=== PATIENT | male | born 1940 | race Caucasian/White ===

== ENCOUNTER 2021-01-27 06:00 | Outpatient (RCR) | payer MEDICARE, SELFPAY | END 2021-01-28 23:59 | disposition home or self-care (01) | LOC: GPT 06:00 | PROVIDERS: PCP Nurse Practitioner Family; Referring Provider Physician Assistant; Visit Provider Physician Assistant | DX: M19.90 Unspecified osteoarthritis, unspecified site (principal); M25.561 Pain in right knee; M25.562 Pain in left knee; Z79.4 Long term (current) use of insulin; I50.1 Left ventricular failure, unspecified | CPT/HCPCS: 97032; 97110; 97162; 97530 ==

== ENCOUNTER 2021-01-29 06:00 | Outpatient (RCR) | payer MEDICARE, SELFPAY | END 2021-02-28 23:59 | disposition home or self-care (01) | LOC: GPT 06:00 | PROVIDERS: PCP Nurse Practitioner Family; Referring Provider Physician Assistant; Visit Provider Physician Assistant | DX: M17.11 Unilateral primary osteoarthritis, right knee (principal) | CPT/HCPCS: 97032; 97110; 97530 ==

== ENCOUNTER → 2022-09-07 14:45 | Outpatient (BNVA) | payer MEDICARE, SELFPAY | PROVIDERS: PCP Nurse Practitioner Family; Visit Provider Surgery | DX: K57.92 Diverticulitis of intestine, part unspecified, without perforation or abscess without bleeding (principal); K92.1 Melena; Z80.0 Family history of malignant neoplasm of digestive organs; Z86.010 Personal history of colon polyps | CPT/HCPCS: 99203 ==

== ENCOUNTER → 2022-10-26 06:24 | Day surgery (SDC) | payer MEDICARE, SELFPAY ==
[2022-10-24 08:47] VITALS: BMI 36.6
[2022-10-26 06:35] VITALS: BP 169/97; PULSE 67; RESP 20; TEMP 36.4; O2SAT 92
--- NOTE | 2022-10-26 06:53 | ANES.PREANE2 ---
Pre-Anesthetic Assessment Height/Weight: Height 1.83 m Weight 122.47 kg Preop Diagnosis: Divertivulitis, Hematochezia Operation Date: 10/26/22 07:30 Proposed Procedures p 55834 Colon, k57.92 diverticulitis, K92.1 hematochezia, z80.0 family hx of colon cancer z86.010 hx of colon polyps(Not Applicable) - Maycol Chacko DO Familial anesthetic complications: none Last intake: Intake Last Liquid Date 10/25/22 Last Liquid Time 22:00 Last Solid Date 10/24/22 Last Solid Time 22:30 Social No alcohol and No tobacco Exam alert, oriented x 3, clear to auscultation bilaterally and regular rate & rhythm Airway Submandibular: within normal limits Cervical ROM: within normal limits Mallampati: Class II Dentition: false (upper and lower) Pulmonary Sleep Apnea (2L NC at night) CV/HEM Coronary Artery Disease, Congestive Heart Failure, Hypertension, Myocardial Infarction ([address] [facility]) and Peripheral Vascular Disease EF 35% per patient None reported Hepatic None reported GI Gastroesophageal Reflux Disease Diverticulitis Hematochezia Metabolic Diabetes Mellitus, Hyperlipidemia and Morbid Obesity [facility] [place] None reported Neuropsych None reported Anesthetic Plan ASA status: 3 Anesthesia: MAC Medications/Allergies Home Medications Medication Instructions Recorded Confirmed Last Taken Type allopurinol 300 mg tablet 300 mg PO DAILY 12/23/20 10/26/22 10/24/22 History aspirin 81 mg chewable tablet 81 mg PO DAILY 12/23/20 10/26/22 10/23/22 History (Gabino Chewable Low Dose Aspirin) carvedilol 12.5 mg tablet 12.5 mg PO BID 12/23/20 10/26/22 10/24/22 History cholecalciferol (vitamin D3) 125 5,000 unit PO DAILY 12/23/20 10/26/22 10/24/22 History mcg (5,000 unit) capsule finasteride 5 mg tablet 5 mg PO DAILY 12/23/20 10/26/22 10/24/22 History furosemide 40 mg tablet 40 mg PO QAM 12/23/20 10/26/22 10/24/22 History glipizide 5 mg tablet, extended 5 mg PO DAILY 12/23/20 10/26/22 10/24/22 History release 24 hr magnesium 250 mg tablet 500 mg PO DAILY 12/23/20 10/26/22 10/24/22 History metformin 1,000 mg tablet 1,000 mg PO BID 12/23/20 10/26/22 10/24/22 History omeprazole 20 mg capsule,delayed 20 mg PO DAILY 12/23/20 10/26/22 10/24/22 History release sacubitril 49 mg-valsartan 51 mg 1 tab PO DAILY 12/23/20 10/26/22 10/24/22 History tablet (Entresto) spironolactone 25 mg tablet 25 mg PO QAM 12/23/20 10/26/22 10/24/22 History tamsulosin 0.4 mg capsule 0.4 mg PO DAILY 12/23/20 10/26/22 10/24/22 History testosterone cypionate 200 mg/mL 200 mg SUBCUT .every other week 12/23/20 10/26/22 10/14/22 History intramuscular oil venlafaxine 75 mg tablet,extended 75 mg PO DAILY 12/23/20 10/26/22 10/24/22 History release 24 hr Allergies Allergy/AdvReac Type Severity Reaction Status Date / Time No Known Allergies Allergy Verified 10/26/22 06:39 [facility] Anesthesia Medical History CAD (coronary artery disease) Diabetes GERD (gastroesophageal reflux disease) Gout Hyperlipidemia Hyperpotassemia Hypertension Testosterone deficiency Surgical History H/O arthroscopic knee surgery bilateral History of appendectomy History of cataract extraction right History of intravascular stent placement History of nasal surgery History of throat surgery History of tonsillectomy Family History Brother Cancer Grandfather Cancer Other CHF (congestive heart failure) Social History Smoking and tobacco status: former smoker Alcohol intake: never Data Anesthesia Cardiac Studies: No Data to Display
[2022-10-26] MEDS: sodium chloride 0.9% 1,000 ML 30 ML IV (06:59)
--- NOTE | 2022-10-26 07:06 | PM.HP ---
Providers/Chief Complaint Primary Care Provider: Bruce Bhatti Chief Complaint: K57.92, K92.1 History of Present Illness Anshu Saleh is a 82 year old male here for a diagnostic colonoscopy Medications/Allergies Home Medications Medication Instructions Recorded Confirmed Last Taken Type allopurinol 300 mg tablet 300 mg PO DAILY 12/23/20 10/26/22 10/24/22 History aspirin 81 mg chewable tablet 81 mg PO DAILY 12/23/20 10/26/22 10/23/22 History (Gabino Chewable Low Dose Aspirin) carvedilol 12.5 mg tablet 12.5 mg PO BID 12/23/20 10/26/22 10/24/22 History cholecalciferol (vitamin D3) 125 5,000 unit PO DAILY 12/23/20 10/26/22 10/24/22 History mcg (5,000 unit) capsule finasteride 5 mg tablet 5 mg PO DAILY 12/23/20 10/26/22 10/24/22 History furosemide 40 mg tablet 40 mg PO QAM 12/23/20 10/26/22 10/24/22 History glipizide 5 mg tablet, extended 5 mg PO DAILY 12/23/20 10/26/22 10/24/22 History release 24 hr magnesium 250 mg tablet 500 mg PO DAILY 12/23/20 10/26/22 10/24/22 History metformin 1,000 mg tablet 1,000 mg PO BID 12/23/20 10/26/22 10/24/22 History omeprazole 20 mg capsule,delayed 20 mg PO DAILY 12/23/20 10/26/22 10/24/22 History release sacubitril 49 mg-valsartan 51 mg 1 tab PO DAILY 12/23/20 10/26/22 10/24/22 History tablet (Entresto) spironolactone 25 mg tablet 25 mg PO QAM 12/23/20 10/26/22 10/24/22 History tamsulosin 0.4 mg capsule 0.4 mg PO DAILY 12/23/20 10/26/22 10/24/22 History testosterone cypionate 200 mg/mL 200 mg SUBCUT .every other week 12/23/20 10/26/22 10/14/22 History intramuscular oil venlafaxine 75 mg tablet,extended 75 mg PO DAILY 12/23/20 10/26/22 10/24/22 History release 24 hr Allergies Allergy/AdvReac Type Severity Reaction Status Date / Time No Known Allergies Allergy Verified 10/26/22 06:39 PFSH Acute PFSH: Medical History CAD (coronary artery disease) Diabetes GERD (gastroesophageal reflux disease) Gout Hyperlipidemia Hyperpotassemia Hypertension Testosterone deficiency Surgical History H/O arthroscopic knee surgery bilateral History of appendectomy History of cataract extraction right History of intravascular stent placement History of nasal surgery History of throat surgery History of tonsillectomy Family History Brother Cancer Grandfather Cancer Other CHF (congestive heart failure) Social History Smoking and tobacco status: former smoker Alcohol intake: never Vitals/I&O/Wt Last Vital Signs Temp 97.6 F 10/26/22 06:35 Pulse 67 10/26/22 06:35 Resp 20 H 10/26/22 06:35 BP 169/97 10/26/22 06:35 Pulse Ox 92 10/26/22 06:35 O2 Del Method Room Air 10/26/22 06:35 Weight last 48 hrs Weight 270 lb A&P Assessment and plan (1) History of colon polyps: (2) Family history of colon cancer: (3) Diverticulitis: Plan Diagnostic colonoscopy Attestations Medical Necessity Statement*: Home Coding Level of Care Code Acute Code for Chg Fwd Diagnoses History of colon polyps Z86.010 Family history of colon cancer Z80.0 Diverticulitis K57.92
[2022-10-26 07:08] LABS: Glucose Point of Care 119 mg/dL (70-110)
--- NOTE | 2022-10-26 07:30 | ECG_ITS ---
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 Measurements Intervals [place] Rate: 74 P: 145 ME: 236 QRS: -25 QRSD: 114 T: 153 QT: 382 QTc: 426 Interpretive Statements SINUS RHYTHM WITH SINUS ARRHYTHMIA WITH FIRST DEGREE AV BLOCK LOW QRS VOLTAGE IN PRECORDIAL LEADS [QRS DEFLECTION < 1.0 mV IN CHEST LEADS] POSSIBLE ANTERIOR MYOCARDIAL INFARCTION , OF INDETERMINATE AGE [30 ms Q WAVE IN V3/V4, OR R < 0.2 mV IN V4] INFERIOR MYOCARDIAL INFARCTION , PROBABLY OLD [40+ ms Q WAVE AND/OR ST/T ABNORMALITY IN II/aVF] No previous ECG available for comparison Electronically Signed On 10-27-2022 10:06:09 CDT by Angelo Archer M.D. [id number]
[2022-10-26 07:43] LABS: Anion Gap 13.3 (5-19); Blood Urea Nitrogen 10 mg/dL (8-23); Calcium 9.5 mg/dL (8.5-10.5); Carbon Dioxide 31 mmol/L (22-29); Chloride 101 mmol/L (98-107); Glucose 121 mg/dL (65-115); Osmolality Calculated 292 mOsm/kg (285-295); Potassium 4.3 mmol/L (3.5-5.1); Sodium 141 mmol/L (136-145)
--- NOTE | 2022-10-26 07:54 | P.MISC_ITS ---
Miscellaneous Note Note: Patient states having frequent episodes of chest pain, unable to achieve 4 METs w/out symptoms, NTG not alleviating symptoms, supposed to have echo in 2 weeks with hx of EF of 35%. Recommend rescheduling until after echo and patient re- convenes with bistro attendant regarding his frequent refractory chest pains. patient is in agreement.
--- NOTE | 2022-10-26 08:07 | SUR.PREOP ---
Patient's case was cancelled today per Dr Garrido, anesthesia, she is wanting pt to get cardiac clearance before proceeding with scope. Patient prepared to go home per Angie Blount RN.
== END ==
PROVIDERS: Anesthesiology; Absent Provider Internal Medicine; PCP Family Medicine; Visit Provider Surgery
PROC: 0DJD8ZZ Inspection of Lower Intestinal Tract, Via Natural or Artificial Opening Endoscopic (ICD-10-PCS; CPT 45378; principal; 2022-10-26 07:30)
DX: Z01.818 Encounter for other preprocedural examination (principal); K57.92 Diverticulitis of intestine, part unspecified, without perforation or abscess without bleeding; Z80.0 Family history of malignant neoplasm of digestive organs; Z86.010 Personal history of colon polyps; G47.30 Sleep apnea, unspecified; I25.10 Atherosclerotic heart disease of native coronary artery without angina pectoris; I11.0 Hypertensive heart disease with heart failure; I50.9 Heart failure, unspecified; I73.9 Peripheral vascular disease, unspecified; E11.9 Type 2 diabetes mellitus without complications; E78.5 Hyperlipidemia, unspecified; E66.01 Morbid (severe) obesity due to excess calories; Z68.36 Body mass index [BMI] 36.0-36.9, adult; Z79.82 Long term (current) use of aspirin; Z87.891 Personal history of nicotine dependence; I49.8 Other specified cardiac arrhythmias; I44.0 Atrioventricular block, first degree; R07.9 Chest pain, unspecified
CPT/HCPCS: 36416; 80048; 82962; 93005; J7030

== ENCOUNTER → 2024-06-05 10:13 | Outpatient (BNVA) | payer MEDICARE, SELFPAY | PROVIDERS: PCP Nurse Practitioner Family; Visit Provider Nurse Practitioner Family | DX: I10 Essential (primary) hypertension (principal); E11.9 Type 2 diabetes mellitus without complications | CPT/HCPCS: 80053; 80061; 82043; 83036 ==

== ENCOUNTER → 2024-07-23 15:22 | Outpatient (BNVA) | payer MEDICARE, SELFPAY | PROVIDERS: PCP Nurse Practitioner Family; Visit Provider Orthopaedic Surgery | DX: M48.061 Spinal stenosis, lumbar region without neurogenic claudication (principal); M25.569 Pain in unspecified knee; M54.9 Dorsalgia, unspecified | CPT/HCPCS: 72110; 73560; 73565; 99214 ==

== ENCOUNTER 2024-07-30 06:00 | Outpatient (RCR) | payer MEDICARE, SELFPAY | END 2024-08-28 23:59 | disposition home or self-care (01) | LOC: GPT 06:00 | PROVIDERS: Visit Provider Orthopaedic Surgery | DX: M54.9 Dorsalgia, unspecified (principal); G89.29 Other chronic pain | CPT/HCPCS: 97140; 97162; 97530 ==

== ENCOUNTER 2024-08-06 11:32 | Outpatient (CLI) | payer MEDICARE, SELFPAY ==
--- NOTE | 2024-08-06 11:45 | MR_ITS ---
WS: [id number] MRI LUMBAR SPINE NONCONTRAST HISTORY: Back pain COMPARISON: None available. TECHNIQUE: Sagittal and axial multisequence imaging is submitted. Mild ventriculomegaly. Moderate C4-5 disc space narrowing. T3 hemangioma. Mild curvature of the lumbar spine. Posterior vertebral alignment is normal. Disc spaces are moderately narrowed and desiccated throughout the lumbar spine, most significant at C4-5. Reactive marrow edema in the endplates of L3 and L4. Conus terminates normally at L1-2 disc level. L1-L2: Mild bilateral facet arthritis. L2-L3: Osteophytic ridging, annular disc bulging and LEFT foraminal disc protrusion. Moderate facet and ligamentum flavum hypertrophy. Central and subarticular recess encroachment. Disc contacts the traversing L3 nerve roots. Moderate LEFT and mild RIGHT foraminal stenosis. L3-L4: Marked annular disc bulging with osteophytic ridging. Disc osteophyte disease in the foramina, RIGHT greater than LEFT. Severe ligamentum flavum and facet arthropathy. Moderate to severe central with bilateral subarticular recess encroachment. Severe RIGHT and mild LEFT foraminal stenosis. L4-L5: Diffuse annular disc bulging, osteophytic ridging and facet arthritis. Mild disc encroachment upon the subarticular recesses. Disc osteophyte disease in the foramina. There is mild bilateral subarticular recess and foraminal stenosis. L5-S1: Mild annular disc bulging with moderate ligamentum flavum and facet arthritis. Mild RIGHT foraminal stenosis. Infrarenal aortic aneurysm 3.2 cm. Large amount of parapelvic fat. MR/MR lumbar spine wo con* [id number] IMPRESSION: 1. L3-4: Moderate to severe central with bilateral subarticular recess stenosi s. Severe RIGHT and mild LEFT foraminal stenosis due to combination of disc dis ease with protrusions and ligamentum flavum and facet arthritis and osteophytes . 2. L4-5: Mild bilateral subarticular recess and foraminal stenosis. 3. L2-3: LEFT foraminal disc protrusion. Mild central and bilateral subarticul ar recess stenosis. Moderate LEFT and mild RIGHT foraminal stenosis due to disc and osteophyte disease. 4. L5-S1: Mild RIGHT foraminal stenosis. 5. Abdominal aortic aneurysm 3.2 cm.
== END 2024-08-06 11:33 | disposition home or self-care (01) ==
PROVIDERS: Visit Provider Orthopaedic Surgery
DX: M48.061 Spinal stenosis, lumbar region without neurogenic claudication (principal); M51.369 Other intervertebral disc degeneration, lumbar region without mention of lumbar back pain or lower extremity pain; M51.26 Other intervertebral disc displacement, lumbar region; M24.28 Disorder of ligament, vertebrae; M47.896 Other spondylosis, lumbar region; M25.78 Osteophyte, vertebrae; M48.07 Spinal stenosis, lumbosacral region; I71.40 Abdominal aortic aneurysm, without rupture, unspecified; G93.89 Other specified disorders of brain; M50.321 Other cervical disc degeneration at C4-C5 level; D18.09 Hemangioma of other sites; M43.8X6 Other specified deforming dorsopathies, lumbar region; M47.897 Other spondylosis, lumbosacral region; M51.379 Other intervertebral disc degeneration, lumbosacral region without mention of lumbar back pain or lower extremity pain; R93.5 Abnormal findings on diagnostic imaging of other abdominal regions, including retroperitoneum
CPT/HCPCS: 72148

== ENCOUNTER → 2024-08-15 10:59 | Outpatient (BNVA) | payer MEDICARE, SELFPAY | PROVIDERS: PCP Family Medicine; Visit Provider Orthopaedic Surgery | DX: Z09 Encounter for follow-up examination after completed treatment for conditions other than malignant neoplasm (principal) | CPT/HCPCS: 99214 ==

== ENCOUNTER → 2024-08-21 13:29 | Outpatient (BNVA) | payer MEDICARE, SELFPAY | PROVIDERS: PCP Family Medicine; Visit Provider Nurse Practitioner Family | DX: M54.16 Radiculopathy, lumbar region (principal); G89.29 Other chronic pain; I83.028 Varicose veins of left lower extremity with ulcer other part of lower leg; L97.822 Non-pressure chronic ulcer of other part of left lower leg with fat layer exposed | CPT/HCPCS: 99214 ==

== ENCOUNTER → 2024-09-13 11:46 | Outpatient (BNVA) | payer MEDICARE, SELFPAY | PROVIDERS: PCP Family Medicine; Visit Provider Nurse Practitioner | DX: M17.12 Unilateral primary osteoarthritis, left knee (principal) | CPT/HCPCS: 99214 ==

== ENCOUNTER → 2024-09-30 11:13 | Outpatient (BNVA) | payer MEDICARE, SELFPAY | PROVIDERS: PCP Family Medicine; Visit Provider Family Medicine | DX: Z01.818 Encounter for other preprocedural examination (principal) | CPT/HCPCS: 81003; 93005 ==

== ENCOUNTER 2024-10-09 12:56 | Outpatient (CLI) | payer MEDICARE, SELFPAY ==
--- NOTE | 2024-10-09 13:00 | CT_ITS ---
WS: [id number] CT LEFT knee, noncontrast HISTORY: left TKA TECHNIQUE: Protocol for [facility] total knee replacement has been obtained. This includes axial imaging through the LEFT hip, LEFT knee and LEFT ankle. DLP: 944.64 mGy.cm COMPARISON: Radiograph 07/23/2024 Mild bilateral narrowing of the hip joints. Mild SI joint arthritis. Numerous diverticula noted in the sigmoid colon. Scattered calcified plaque in the iliac arteries. LEFT knee: Marked narrowing of of the medial compartment LEFT knee. This is most obvious as seen on the radiograph and localizer image. Osteophytic ridging around the femoral condyles and tibial plateau. Scattered densities within the joint and effusion probably representing chondrocalcinosis. LEFT knee edema. Small suprapatellar joint effusion. Soto's cyst contains calcified bodies. Mild lateral subluxation of the patella. LEFT ankle: Negative. CT/CT knee LT [facility] [id number] IMPRESSION: CT imaging provided for [facility] robotic total knee replacement.
== END 2024-10-09 12:57 | disposition home or self-care (01) ==
LOC: RAD 12:57
PROVIDERS: PCP Family Medicine; Visit Provider Nurse Practitioner
DX: M47.898 Other spondylosis, sacral and sacrococcygeal region (principal); M71.22 Synovial cyst of popliteal space [Baker], left knee; M25.462 Effusion, left knee; S83.002A Unspecified subluxation of left patella, initial encounter; X58.XXXA Exposure to other specified factors, initial encounter
CPT/HCPCS: 73700

== ENCOUNTER 2024-10-15 10:03 | Observation (INO) | payer MEDICARE, SELFPAY ==
[2024-10-15] VITALS (18 sets, daily range): BP systolic 100–148; BP diastolic 47–87; PULSE 53–92; RESP 14–25; TEMP 36.2–36.6; O2SAT 93–97; BMI 38.5
[2024-10-15] MEDS: CELEcoxib 200 mg Capsule 400 MG PO (06:18)
[2024-10-15] MEDS: gabapentin 300 mg Capsule PO (06:18)
--- NOTE | 2024-10-15 06:24 | ANES.PREANE2 ---
Pre-Anesthetic Assessment Height/Weight: Height 5 ft 11 in Weight 276 lb Temp Pulse Resp BP Pulse Ox O2 Del Method 97.3 F L 59 L 16 133/62 96 Room Air 10/15/24 06:10 10/15/24 06:10 10/15/24 06:10 10/15/24 06:10 10/15/24 06:10 10/15/24 06:10 Preop Diagnosis: Knee arthritis Operation Date: 10/15/24 07:00 Proposed Procedures p Left Gatito Robot Total Knee Arthroplasty(Left) - Heather Bruce MD Was Beta Nataly taken within 24 hours: Yes Was Clonidine taken within 24 hours: N/A Last intake: Intake Last Liquid Date 10/14/24 Last Liquid Time 23:00 Last Solid Date 10/14/24 Last Solid Time 23:00 Social No alcohol and No tobacco Quit smoking 30 years ago Exam alert, oriented x 3 and regular rate & rhythm Airway Submandibular: within normal limits Cervical ROM: within normal limits Mallampati: Class III Dentition: partials Comments: Comments: Large neck circumference, partial taken out. Denies any loose teeth Anesthetic Plan ASA status: 3 Anesthesia: General Other: History of nausea after colonoscopy many many years ago, many procedures since that time without issues NPO since yesterday evening History of CAD,HFrEF,last echo showing EF 35%. Stents in 2008 CKD stage III Hypertension, on spironolactone, sacubitril?valsartan and carvedilol. Preop BP 133/62 Nocturnal hypoxia, 2 L O2 at night. Patient states that he has asbestos in his lungs Labs reviewed from 09/30/2024 EKG showing sinus rhythm with first-degree AV block Plan for general anesthesia Medications/Allergies Home Medications ?Medication ?Instructions ?Recorded ?Confirmed ?Last Taken ?Type allopurinol 300 mg tablet 300 mg PO DAILY 12/23/20 10/14/24 10/13/24 History aspirin 81 mg chewable tablet 81 mg PO DAILY 12/23/20 10/14/24 10/10/24 History (Gabino Chewable Low Dose Aspirin) carvedilol 12.5 mg tablet 12.5 mg PO BID 12/23/20 10/15/24 10/15/24 03:30 History cholecalciferol (vitamin D3) 125 5,000 unit PO DAILY 12/23/20 10/14/24 10/13/24 History mcg (5,000 unit) capsule finasteride 5 mg tablet 5 mg PO DAILY 12/23/20 10/14/24 10/13/24 History sacubitril 49 mg-valsartan 51 mg 1 tab PO DAILY 12/23/20 10/14/24 10/13/24 History tablet (Entresto) spironolactone 25 mg tablet 25 mg PO QAM 12/23/20 10/14/24 10/13/24 History tamsulosin 0.4 mg capsule 0.4 mg PO DAILY 12/23/20 10/14/24 10/13/24 History venlafaxine 75 mg tablet,extended 75 mg PO DAILY 12/23/20 10/14/24 10/13/24 History release 24 hr cetirizine 10 mg tablet (Zyrtec) 10 mg PO DAILY #90 tabs 06/14/24 10/14/24 10/13/24 Rx nystatin 100,000 unit/gram topical 1 applic topical BID 09/30/24 10/14/24 10/13/24 History ointment Allergies Allergy/AdvReac Type Severity Reaction Status Date / Time No Known Allergies Allergy Verified 10/15/24 06:07 [facility] Anesthesia Medical History Primary osteoarthritis of left knee Bilateral primary osteoarthritis of knee CAD (coronary artery disease) Testosterone deficiency Diabetes Gout GERD (gastroesophageal reflux disease) Hypertension Hyperlipidemia Hyperpotassemia Surgical History History of intravascular stent placement History of appendectomy H/O arthroscopic knee surgery bilateral History of tonsillectomy History of nasal surgery History of throat surgery History of cataract extraction right Family History Brother Cancer Grandfather Cancer Other Congestive heart failure (CHF) Social History Smoking and tobacco/nicotine status: former use of tobacco/nicotine Alcohol intake: never
[2024-10-15] MEDS: acetaminophen 1,000 MG/100 ML PIGGYBACK 400 MG IV ×3 (06:26→20:14)
[2024-10-15] MEDS: sodium chloride 0.9% 1,000 ML 30 ML IV (06:27)
[2024-10-15 06:32] LABS: Glucose Point of Care 135 mg/dL (70-110)
--- NOTE | 2024-10-15 07:00 | P.HPUD_ITS ---
Surgery/Procedure H&P Update DATE OF PROCEDURE: October 15, 2024 DATE H&P PERFORMED: 09/30/24 H&P UPDATE INFORMATION: I have reviewed H&P completed within last 30 days, I have examined patient prior to procedure, No changes to prior documentation, H&P is in [facility] EMR on date indicated and Risks and benefits of the procedure reviewed PREOP DIAGNOSIS: Knee arthritis PLANNED PROCEDURE: Operation Date: 10/15/24 07:00 Proposed Procedures p Left Gatito Robot Total Knee Arthroplasty(Left) - Heather Bruce MD Related Problem List Diagnoses (1) Primary osteoarthritis of left knee: (2) Diabetes: Qualifiers: Diabetes mellitus type: type 2 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
[2024-10-15] MEDS: ceFAZolin 3,000 MG in sodium chloride 0.9% (100 ml) 100 ML 200 MG IV ×3 (07:11→23:59)
[2024-10-15] MEDS: tranexamic acid 1,000 MG/100 ML PREMIX 600 MG IV ×2 (07:22→15:26)
[2024-10-15 08:43] LABS: Hematocrit 43.3 % (37-53)
[2024-10-15] MEDS: BUPivacaine liposome 13.3 mg/mL SDV 20 mL 266 MG INFILTRATI (08:56)
[2024-10-15] MEDS: BUPivacaine 0.5% INJ 10 mL 20 ML INJECTION (08:56)
[2024-10-15] MEDS: ceFAZolin 1,000 mg SDV 2000 MG IRRIGATION (08:59)
[2024-10-15] MEDS: vancomycin 1,000 MG SDV 1000 MG XX (09:00)
--- NOTE | 2024-10-15 10:34 | XR_ITS ---
WS: [id number] Left knee, AP and lateral views, 10/15/2024 Clinical Data: Status post left total knee arthroplasty Comparison: Both knees, 07/23/2024 Findings: There is a knee arthroplasty. There is air in the joint space from the recent surgery. No fractures are seen. XR/XR knee LT 1-2V [id number] Impression: Left knee arthroplasty.
--- NOTE | 2024-10-15 11:04 | ANE.PACU2 ---
Inpatient post-anesthesia follow up: Airway intact: Yes Vital signs: Temperature 97.4 F Pulse Rate 54 Respiratory Rate 18 Blood Pressure 108/48 Pulse Oximetry 95 Oxygen Delivery Me thod Nasal Cannula Oxygen Flow Rate 2 Fraction of Inspir ed Oxygen Hydration adequate: Yes Nausea and vomiting: No Pain level: 1 Mental status: Baseline
--- NOTE | 2024-10-15 11:43 | P.OP_ITS ---
Operative Report Date of procedure: October 15, 2024 Pre-op diagnosis: Severe degenerative osteoarthritis left knee with slight flexion contracture and varus deformity Post-op diagnosis: Severe degenerative osteoarthritis left knee with flexion contracture and varus deformity Post-op findings: Complete denudement of cartilage, large osteophytes, varus deformity, and slight flexion contracture Procedure done: Left total knee arthroplasty with Gatito guidance Implants: The [employer] total knee system with a size 5 triathlon beaded cruciate retaining femur left, a triathlon titanium tibial component size 6 beaded, a triathlon X3 tibial bearing CS insert size 6 x 11 mm and a beaded triathlon titanium asymmetric patella size 35 x 10 mm Specimens removed/disposition: Bone, disposed of Pathology: None Surgeon: Heather Bruce MD Legal Billing Clerk: Jenni Ye whose services were required for retraction, positioning, intraoperative exposure, and closure Anesthesia: General (Intubated, ASA 3) Estimated blood loss (mL): 460 Tourniquet time (min): 0 (Not utilized) IV fluids (mL): 1,400 Urine output (mL): 180 Complications: None Findings: See above Condition: stable Disposition: PACU (Then to the floor for postoperative rehabilitation and pain management) Brief History: This 84-year-old gentleman presented with complaints of severe left knee pain. The patient rated his pain at a 5/10. He received cardiac clearance preoperatively as well as received clearance from Dr. Naik prior to proceeding with surgical intervention. Preoperatively, he was advised that his venous stasis issues did increase his risk of infection following surgery. He understood those risks, and wishes to proceed with the surgical intervention. Risks and complications were discussed in detail. On the morning of surgery, they were once again discussed with him. Procedure: The patient was brought to the operating theater, and after undergoing adequate general anesthesia per ET tube, ASA 3, the left lower extremity was prepped with Dura-Prep and draped in usual fashion following placement of a tourniquet high on the leg. The leg was then draped free.? Tourniquet was not elevated throughout the surgical procedure. Prior to commencement of the procedure, a surgical pause was performed, and at the time of the surgical pause, we confir med the site and side of surgery. Additionally, we confirmed the appropriate and timely administration of preoperative antibiotics, Ancef 2 g.? The availability of equipment was confirmed, and the patient's identity was verbalized as well. Following the surgical pause, an incision was made centering over the patella continuing proximally and distally as necessary to allow access to the knee joint. Dissection continued through skin and soft tissues using a scalpel. Hemostasis was obtained using electrocautery. The skin incision was followed by a median parapatellar arthrotomy. The leg was extended and the patella was able to be displaced laterally.? Appropriate arrays and markers were placed in appropriate position for use of the Gatito.? Preoperative planning had been accomplished and was discussed in detail with the [facility] sales representative uniforms.? Intraoperative mapping of the femur and tibia was accomplished after the arrays were placed.? Internal markers were also placed.? Once we had accomplished the Gatito mapping, we began the appropriate resections for placement of the prosthesis.? The plan was for a cruciate retaining right total knee arthroplasty. Once appropriate mapping had been accomplished retraction was established using manual retraction by surgical technicians and also the Gatito leg positioner and retractors.? The knee was evaluated.? There was significant osteoarthritic ekaterina nge as well as a significant flexion contracture and severe varus deformity.? Appropriate bone resection was accomplished using the Gatito.? The femur was sized to a size 5.? Following femoral cuts, attention was directed to the tibia.? Osteophytes were removed prior to this portion of the procedure.? We had performed a medial release at the beginning of the procedure to allow for placement of the array.? Proximal tibia was evaluated, and it was felt that appropriate size for the tibia was a size 6.? The size 6 tray was noted to fit nicely with good coverage.? Rim fit was accomplished with the size 6. A trial reduction was accomplished after osteophytes have been removed as well as the medial and lateral menisci.? We had removed the anterior cruciate ligament at the beginning of the case and preserved the posterior cruciate ligament.? Trial reduction was accomplished with a size 5 femoral cruciate retaining component, a size 6 tibial tray and a size 6 CS tibial bearing insert which initially was a 9 mm thickness. After trial with this, a trial reduction was accomplished with a size 6 x 11 mm tibial bearing insert, CS. Alignment was felt to be appropriate as well.? Trial components were removed after the femur had been drilled.? Prior to removal of the tibial tray which had been pinned in position with appropriate rotation as determined by the Gatito plan, we broached the tibia.? Subsequently, the 4 drill holes were made for the prosthetic component.? All trial components were removed, and the wound was irrigated.? Plans were made for insertion of the prosthetic components.? Prior to this, the patella was manually prepared.? After resection of the articular surface with the jogging system, it was measured and measured a 35 mm patella.? We resected approximately 9 mm of patella.? Patellar height was restored with the patellar component. Once again, the wound was irrigated. The Tritanium tibia was impacted into position.? The beaded femur was then impacted into position in a cementless fashion. The CS tibial insert was placed prior to placement of the femoral component. The patella was pressed into position with a patellar clamp.? Exparel was injected about the components deep and superficially.? The knee was then copiously irrigated with betadine and saline and suctioned dry. Attention was then directed to closure. Closure was accomplished with 0 Vicryl in the fascial tissues.? The suture line of 0 Vicryl was supplemented with strata fix, #1, with a running suture from proximal to distal and a second running stitch from distal to proximal.? This was followed by Surgiflo and vancomycin powder.? Following this, a 2-0 Strata Fix was used in the subcutaneous tissues, and the skin was closed with 3-0 Strata fix.? Care was taken to assure an excellent subcutaneous as well as skin closure.? A sterile dressing was then placed consisting of Dermabond Prineo, OpSite, ABD, sterile soft roll, and an Duncan wrap including over the foot. The patient was returned the Recovery Room in a satisfactory condition. X-rays were obtained and reviewed there.? The patient will be discharged to the floor for postoperative rehabilitation and pain management. Related Problem List Diagnoses (1) Primary osteoarthritis of left knee:
[2024-10-15] MEDS: chlorhexidine gluconate 0.12% Btl 473 mL 30 ML MUCOUS MEM ×3 (12:02→20:21)
--- NOTE | 2024-10-15 12:10 | PC.SOCIAL ---
PCP is Kartik Bhatti Pharmacy: [facility] DME company that supplies oxygen: [employer] Patient has one step up into his house and has a ramp. He has a seated rolater that he bought on [employer]. Wears 2L at night only at home. Lives with , but she is currently in another hospital with an infection, but daughter Izabela will help him after discharge and will be his ride home when he discharges. 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
[2024-10-15] MEDS: oxyCODONE 5 mg IR Tab/Cap PO (12:51)
[2024-10-15] MEDS: mupirocin oint 22 gm 1 APPLIC NASAL (17:09)
[2024-10-15] MEDS: calcium carbonate 500 mg Chew Tablet 1000 MG PO (17:09)
[2024-10-15] MEDS: iron polysaccharide complex 150 mg Capsule PO (17:16)
[2024-10-15] MEDS: sennosides-docusate Tablet 2 TAB PO (17:16)
[2024-10-15] MEDS: carvedilol 12.5 mg Tablet PO (17:16)
[2024-10-15] MEDS: nystatin cream 30 gm 1 APPLIC TOPICAL (17:24)
[2024-10-15 18:25] LABS: Glucose Point of Care 175 mg/dL (70-110)
[2024-10-15 20:41] LABS: Glucose Point of Care 194 mg/dL (70-110)
[2024-10-16] VITALS (7 sets, daily range): BP systolic 130–158; BP diastolic 54–96; PULSE 63–90; RESP 16–20; TEMP 36.4–36.8; O2SAT 93–98
[2024-10-16] MEDS: oxyCODONE 5 mg IR Tab/Cap PO ×2 (00:49→06:12)
[2024-10-16] MEDS: acetaminophen 1,000 MG/100 ML PIGGYBACK 400 MG IV (03:05)
[2024-10-16 05:50] LABS: Basophils % 0.3 %; Eosinophils # 0.1 10^3/uL (0.0-0.8); Eosinophils % 0.6 %; Hematocrit 38.2 % (37-53); Lymphocytes # 1.1 10^3/uL (0.8-4.8); Lymphocytes % 6.7 %; Mean Corpuscular HGB Conc 31.4 g/dL (30-55); Mean Corpuscular Hemoglobin 32.2 pg (27-33); Mean Corpuscular Volume 102.4 fl (82-101); Mean Platelet Volume 10.9 fL (7.4-10.4); Monocytes # 1.2 10^3/uL (0.2-0.9); Monocytes % 7.5 %; Neutrophils # 13.22 10^3/uL (1.8-7.7); Neutrophils % 84.1 %; Nucleated Red Blood Cells % 0 %; Platelet Count 135 10^3/cmm (157-399); Red Blood Count 3.73 10^6/uL (3.85-5.65); White Blood Count 15.71 10^3/uL (3.29-11.43)
[2024-10-16 06:06] LABS: Blood Urea Nitrogen 32 mg/dL (8-23); Calcium 8.9 mg/dL (8.5-10.5); Carbon Dioxide 27 mmol/L (22-29); Chloride 104 mmol/L (98-107); Creatinine Clr Calc Pharmacy 51.9752; Glucose 151 mg/dL (65-115); Osmolality Calculated 298 mOsm/kg (285-295); Sodium 139 mmol/L (136-145)
[2024-10-16] MEDS: ceFAZolin 3,000 MG in sodium chloride 0.9% (100 ml) 100 ML 200 MG IV (06:13)
[2024-10-16] MEDS: spironolactone 25 mg Tablet PO (06:13)
[2024-10-16 06:20] LABS: Glucose Point of Care 141 mg/dL (70-110)
[2024-10-16 06:24] LABS: Anion Gap 13.3 (5-19); Potassium 5.3 mmol/L (3.5-5.1)
[2024-10-16] MEDS: calcium carbonate 500 mg Chew Tablet 1000 MG PO (10:32)
[2024-10-16] MEDS: tamsulosin 0.4 mg Capsule PO (10:32)
[2024-10-16] MEDS: sacubitril/valsartan 24-26 mg Tablet 2 EACH PO (10:32)
[2024-10-16] MEDS: cholecalciferol (vitamin D3) 1,000 unit Tablet 1000 UNIT PO (10:33)
[2024-10-16] MEDS: cetirizine 10 mg Tablet PO (10:33)
[2024-10-16] MEDS: multivitamin therapeutic Tablet 1 TAB PO (10:33)
[2024-10-16] MEDS: aspirin 325 mg EC Tablet PO (10:33)
[2024-10-16] MEDS: sennosides-docusate Tablet 2 TAB PO (10:33)
[2024-10-16] MEDS: allopurinol 300 mg Tablet PO (10:33)
[2024-10-16] MEDS: finasteride 5 mg Tablet PO (10:33)
[2024-10-16] MEDS: cholecalciferol (vitamin D3) 5,000 unit Tablet 5000 UNIT PO (10:33)
[2024-10-16] MEDS: iron polysaccharide complex 150 mg Capsule PO (10:34)
[2024-10-16] MEDS: carvedilol 12.5 mg Tablet PO (10:34)
[2024-10-16] MEDS: chlorhexidine gluconate 0.12% Btl 473 mL 30 ML MUCOUS MEM (10:34)
[2024-10-16] MEDS: venlafaxine ER (24HR) 75 mg Capsule PO (10:34)
[2024-10-16] MEDS: nystatin cream 30 gm 1 APPLIC TOPICAL (10:35)
[2024-10-16] MEDS: mupirocin oint 22 gm 1 APPLIC NASAL (10:35)
--- NOTE | 2024-10-16 10:45 | PC.CHAP ---
Pastoral Care Encounter/Spiritual Assessment Type of Contact [] Declined mechanical maintenance visit [] Patient/Family/Request visit [] Outpatient visit [] Follow-up visit [] Physician referral [] Code/Alert [x] Routine visit [] Staff referral [] Actively dying [] Patient sleeping [] Family support [] [] Out of room [] Palliative care [] [] Receiving care in room [] Pre-surgical visit [] Trauma [] Long length of stay [] ICU visit [] Other: Relational/Emotional Strength [x] Patient feels connected with others/family/visitors/staff [] Distress [] Loneliness/isolation [] Abandonment Spirituality of Patient [x] Person of Jennifer [] Attends Amish of their Jennifer [x] Believes in Prayer [] Reads Bible or Confucianism materials [] There are Spiritual issues to be addressed Bottling Supervisor Interventions [x] Prayer [x] Active listening [] Non-anxious presence [x] Spiritual/emotional support [] Crisis/trauma care [] Spiritual counseling [] Bereavement support [] Provided bereavement packet [] Provided Bible/devotional materials [] Provided toy/stuffed animal, coloring book to patient or family member [] Provided Communion [] Anointing/[place] [] Salvation [x] Completed spiritual assessment [] Other: Impact on Illness or Injury [] Angry [] Fearful [] Anxious [] Often cries [] Exhaustion [] Unable to work [] Unable to attend jain [] Unable to walk/stand [] Unable to read [] Unable to drive [] Unable to eat/drink [] Unable to sleep [] Unable to be with family [] Patient intubated [] Other: Summary Time spent with patient 5 min
[2024-10-16] MEDS: acetaminophen 500 mg Tablet 1000 MG PO (11:33)
[2024-10-16 12:45] LABS: Glucose Point of Care 165 mg/dL (70-110)
--- NOTE | 2024-10-16 14:01 | PM.DCS ---
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 The patient rated his pain at a 5/10. He received cardiac clearance preoperatively as well as received clearance from Dr. Naik prior to proceeding with surgical intervention. Preoperatively, he was advised that his venous stasis issues did increase his risk of infection following surgery. He understood those risks, and wishes to proceed with the surgical intervention. Risks and complications were discussed in detail. On the morning of surgery, they were once again discussed with him. Physical Exam Const: COMMON NORMALS: no acute distress, average body habitus, patient oriented x3 and alert GENERAL APPEARANCE: cooperative and comfortable ORIENTATION/CONSCIOUSNESS: Yes awake HENMT: COMMON NORMALS: normocephalic and atraumatic HEAD & SCALP: normocephalic and atraumatic Eye: GENERAL EYE: appearance normal, both eyes and all related structures Chest: COMMONS NORMALS: normal inspection of the chest Resp: COMMON NORMALS: normal respiratory effort EFFORT & INSPECTION: Yes able to speak in complete sentences and Yes symmetric chest movement Extremity: LEFT LOWER EXTREMITY: Yes knee joint (Large outer dressing is removed. ) Left knee: Yes inspection (No significant swelling or ecchymosis), Yes ROM (Not evaluated) and Yes neurovascular exam (Intact distally with no evidence of DVT) Neuro: COMMON NORMALS: patient oriented x3 SENSORIUM/ORIENTATION: Yes alert Psych: COMMON NORMALS: mental status grossly normal APPEARANCE: Yes grossly normal ATTITUDE: Yes calm and Yes engaged ATTENTION/CONCENTRATION: Yes attention grossly intact Skin: COMMON NORMALS: no rashes or lesions noted GENERAL SKIN EXAM: no rashes or lesions noted Urinary Catheter Management: [place]: Cath Placed During This Visit: yes, but has since been removed by the nurse Reason for Continuing Indwelling Catheter: Perioperative Use in Selected Surgeries Urinary Catheter Date of Insertion: 10/15/24 Urinary Catheter Time of Insertion: 07:15 Date Urinary Catheter Removed: 10/16/24 Time Urinary Catheter Discontinued: 06:20 Discharge Data Studies Completed and Pending Pending at discharge Category Date Time Status XR knee LT 1-2V 04331 Routine Exams 10/15/24 10:34 Taken Complete Blood Count w/Auto AM LABS Lab 10/17/24 04:00 Ordered Complete Blood Count w/Auto AM LABS Lab 10/18/24 04:00 Ordered Laboratory Results WBC 15.71 10^3/uL (3.29-11.43) H 10/16/24 05:15 RBC 3.73 10^6/uL (3.85-5.65) L 10/16/24 05:15 Hgb 12.00 g/dL (11.27-16.99) 10/16/24 05:15 Hct 38.2 % (37-53) 10/16/24 05:15 MCV 102.4 fl (82-101) H 10/16/24 05:15 MCH 32.2 pg (27-33) 10/16/24 05:15 MCHC 31.4 g/dL (30-55) 10/16/24 05:15 RDW 14.0 % (12.1-15.1) 10/16/24 05:15 Plt Count 135 10^3/cmm (157-399) L 10/16/24 05:15 MPV 10.9 fL (7.4-10.4) H 10/16/24 05:15 Neut % (Auto) 84.1 % 10/16/24 05:15 Lymph % (Auto) 6.7 % 10/16/24 05:15 [place] % (Auto) 7.5 % 10/16/24 05:15 Eos % (Auto) 0.6 % 10/16/24 05:15 Baso % (Auto) 0.3 % 10/16/24 05:15 Neut # (Auto) 13.22 10^3/uL (1.8-7.7) H 10/16/24 05:15 Lymph # (Auto) 1.1 10^3/uL (0.8-4.8) 10/16/24 05:15 [place] # (Auto) 1.2 10^3/uL (0.2-0.9) H 10/16/24 05:15 Eos # (Auto) 0.1 10^3/uL (0.0-0.8) 10/16/24 05:15 Baso # (Auto) 0.0 10^3/uL (0.0-0.1) 10/16/24 05:15 Nucleated RBC % (auto) 0 % 10/16/24 05:15 Nucleated RBCs # 0.0 /100WBC 10/16/24 05:15 Sodium 139 mmol/L (136-145) 10/16/24 05:15 Potassium 5.3 mmol/L (3.5-5.1) H 10/16/24 05:15 Chloride 104 mmol/L (98-107) 10/16/24 05:15 Carbon Dioxide 27 mmol/L (22-29) 10/16/24 05:15 Anion Gap 13.3 (5-19) 10/16/24 05:15 BUN 32 mg/dL (8-23) H 10/16/24 05:15 Creatinine 1.4 mg/dL (0.7-1.2) H 10/16/24 05:15 GFR Calculation Not Reportable 10/16/24 05:15 Glucose 151 mg/dL (65-115) H 10/16/24 05:15 POC Glucose 165 mg/dL (70-110) H 10/16/24 11:08 Calculated Osmolality 298 mOsm/kg (285-295) H 10/16/24 05:15 Calcium 8.9 mg/dL (8.5-10.5) 10/16/24 05:15 Blood Type O Positive 10/15/24 06:40 Rho(D) Type Rh positive 10/15/24 06:40 Antibody Screen Negative 10/15/24 06:40 Vitals Last Vital Signs Temp 98.3 F 10/16/24 11:50 Pulse 71 10/16/24 11:50 Resp 18 10/16/24 11:50 BP 135/96 10/16/24 11:50 Pulse Ox 93 10/16/24 11:50 O2 Del Method Room Air 10/16/24 11:50 O2 Flow Rate 4 10/16/24 03:46 Discharge Plan Discharge Patient Disposition: Home Health Service Condition: Stable Prescriptions: New oxycodone 5 mg tablet 5 mg PO Q4H PRN (Reason: pain) 7 Days Qty: 30 0RF acetaminophen 500 mg Tablet 1,000 mg PO Q8H 15 Days Qty: 90 0RF aspirin 325 mg Tablet,Delayed Release (Dr/Ec) 325 mg PO DAILY 30 Days Qty: 30 0RF Continued Entresto 49-51 mg tablet 1 tab PO DAILY tamsulosin 0.4 mg capsule 0.4 mg PO DAILY finasteride 5 mg tablet 5 mg PO DAILY aspirin [Gabino Chewable Aspirin] 81 mg tablet,chewable 81 mg PO DAILY allopurinol 300 mg tablet 300 mg PO DAILY carvedilol 12.5 mg tablet 12.5 mg PO BID Rx Instructions: must administer with a meal/food venlafaxine 75 mg tablet extended release 24hr 75 mg PO DAILY spironolactone 25 mg tablet 25 mg PO QAM cholecalciferol (vitamin D3) 125 mcg (5,000 unit) capsule 5,000 unit PO DAILY cetirizine [Zyrtec] 10 mg tablet 10 mg PO DAILY Qty: 90 0RF nystatin 100,000 unit/gram ointment 1 applic topical BID Discharge Orders: Discharge Order (Routine); Ordered 10/16/24 Ordered By: Heather Bruce Referrals: [facility] [Outside] Heather Bruce MD [Physician, Orthopedics] - 10/28/24 9:45 am Kartik Bhatti MD [Physician, Family Practice] - 10/23/24 11:20 am Discharge Diet: Advance as tolerated, Usual diet and As Directed Discharge Activity: Increase activity as tolerated, Limit activity as instructed, Use walker/crutches as instructed and As per PT/OT instructions Patient Instructions: Aspirin (By mouth), Oxycodone, Rapid Release (By mouth), Acute Wound Care (DC), Total Knee Replacement (GEN), Opioid Safety, Post Anesthesia Care Activity Restrictions/Additional Instructions: You may shower with your dressing in place. If your dressing begins to leak, please remove it. Otherwise, we will remove the dressing in the office. You may weight-bear as tolerated. Home physical therapy for range of motion, gait training, and strengthening. Discharge Attestations Time Spent in Discharge Care*: greater than 30 min Specific Discharge Activities: educating patient, documenting/other paperwork and evaluating patient/reviewing data Quality Metrics Clinical Quality Measures [ No reported AMI, CVA or VTE this stay] Coding Level of Care Code Acute Code for Chg Fwd Diagnoses Status post total left knee replacement not using cement Z96.652 Primary osteoarthritis of left knee M17.12
--- NOTE | 2024-10-16 16:51 | PC.NURSE ---
Discussed discharge with patient and family. Went over new medications, follow up visits an signs and symptoms of infection. Patient had medications in room at time of discharge. Both parties verbalized understanding.
== END 2024-10-16 16:05 | disposition home health service (06) ==
LOC: MEDSURG 10:03
PROVIDERS: Nurse Practitioner; Admitting Provider Specialist; PCP Family Medicine; Visit Provider Specialist
PROC: 8E0Y0CZ Robotic Assisted Procedure of Lower Extremity, Open Approach (ICD-10-PCS; CPT 27447; principal; 2024-10-15 07:00)
DX: M17.12 Unilateral primary osteoarthritis, left knee (principal); M24.562 Contracture, left knee; M21.162 Varus deformity, not elsewhere classified, left knee; M25.762 Osteophyte, left knee; Z79.82 Long term (current) use of aspirin; Z86.79 Personal history of other diseases of the circulatory system; I25.10 Atherosclerotic heart disease of native coronary artery without angina pectoris; E11.22 Type 2 diabetes mellitus with diabetic chronic kidney disease; I12.9 Hypertensive chronic kidney disease with stage 1 through stage 4 chronic kidney disease, or unspecified chronic kidney disease; N18.30 Chronic kidney disease, stage 3 unspecified; E78.5 Hyperlipidemia, unspecified; E87.5 Hyperkalemia; Z87.891 Personal history of nicotine dependence; R09.02 Hypoxemia; Z79.84 Long term (current) use of oral hypoglycemic drugs
CPT/HCPCS: 27447; 20985; 36415; 36416; 51702; 73560; 80048; 82962; 85014; 85018; 85025; 86850; 86900; 97110; 97116; 97161; 97166; 97530; A4216; C1776; G0378; J0131; J0666; J0690; J1100; J2371; J2405; J2704; J3010; J3370; J3490; J7030; J9999

== ENCOUNTER → 2024-10-28 09:43 | Outpatient (BNVA) | payer MEDICARE, SELFPAY | PROVIDERS: PCP Family Medicine; Visit Provider Nurse Practitioner | DX: Z98.890 Other specified postprocedural states (principal); Z96.652 Presence of left artificial knee joint | CPT/HCPCS: 99024 ==

== ENCOUNTER → 2024-11-14 13:32 | Outpatient (BNVA) | payer MEDICARE, SELFPAY | PROVIDERS: PCP Family Medicine; Visit Provider Orthopaedic Surgery | DX: M48.061 Spinal stenosis, lumbar region without neurogenic claudication (principal) | CPT/HCPCS: 99213 ==

== ENCOUNTER → 2025-01-08 13:40 | Outpatient (BNVA) | payer MEDICARE, SELFPAY | PROVIDERS: PCP Family Medicine; Visit Provider Nurse Practitioner Family | DX: M79.18 Myalgia, other site (principal); M54.16 Radiculopathy, lumbar region; G89.29 Other chronic pain; Z87.891 Personal history of nicotine dependence | CPT/HCPCS: 20553; 99214; J1010; J3490 ==

== ENCOUNTER → 2025-01-22 13:03 | Outpatient (BNVA) | payer MEDICARE, SELFPAY | PROVIDERS: PCP Family Medicine; Visit Provider Nurse Practitioner Family | DX: M54.16 Radiculopathy, lumbar region (principal); G89.29 Other chronic pain | CPT/HCPCS: 99214 ==

== ENCOUNTER → 2025-03-06 10:40 | Outpatient (BNVA) | payer MEDICARE, SELFPAY | PROVIDERS: PCP Family Medicine; Visit Provider Nurse Practitioner Family | DX: M54.16 Radiculopathy, lumbar region (principal); G89.29 Other chronic pain | CPT/HCPCS: 99214 ==